=== PATIENT | female | born 1950 | race Two or more races ===

== ENCOUNTER → 2024-12-16 | Outpatient (CLI) | payer OTHER ==
[~2024-12-16] VITALS: Ht 170.2 cm; Wt 113.4 kg
[~2024-12-16] MED LIST: ATOR10TA52 PO; CARV12.544 PO; CLON0.1T PO; HYDR1TAB97; ISO60SRT PO; LOSA-535 PO; NIFE60TA61
[2024-12-16] MEDS: REGADENOSON 0.4 MG/5 ML SYRG IV ONE ×2 (09:16→10:25)
--- NOTE | 2024-12-16 18:48 | DVHSR ---
APPROVED REPORT Exam: Nuclear Stress Test BMI: 0 Stress Test Details Stress Test: Pharmacologic stress testing performed using 0.4 mg of regadenoson per 5 mL given IV ov er 10 seconds. HR Resting HR: 88 bpmMax Heart Rate (APMHR): 144.966288 bpm Max HR Achieved: 100 bpmTarget HR (85% APMHR): 122.265959 bpm % of APMHR: 69.44 Recovery HR: 91 bpm BP Resting BP: 153/72 mmHg Recovery BP: 132/70 mmHg ECG Resting ECG: Sinus Rhythm Clinical Reason for Termination: Completed protocol Nurse Comments Recieved pt. from [employer]. A/Ox4 on RA. Connected to traffic monitor specialist, VS stable. PIV flushes well. Re viewed POC. Pt. verbalized understanding of procedure including risks and side effects, agrees for st ress testing. Lexiscan stress test performed per protocol. [employer] tech administered Cardiolite. Pt. tolerated well . Pt. stable, no change on exam. VS returned to baseline. Transferred to [employer] via wheelchair w/ te ch. Stress ECG Conclusion lvef 62% normal perfusion scan normal lvef NM EXAM: Myocardial Perfusion REST/STRESS Imaging Protocol: Rest Tc-99m/Stress Tc-99m 1 day Resting Data Rest SPECT myocardial perfusion imaging was performed in supine position 45 minutes following the int ravenous injection of 10.2 mCi of Tc-99m Sestamibi. Time of rest injection: 09:10 Date: 12/16/2024 Time of rest imagin:55 Date: 12/16/2024 Administration Route: IV Administration Site: Left Arm Pharmacologic Stress Pharmacologic stress test was performed by injecting Regadenoson 0.4 mg IV push followed by the intra venous injection of 32.4 mCi of Tc-99m Sestamibi. Time of stress injection: 10:25 Date: 12/16/2024 Time of stress imagin:10 Date: 12/16/2024 Administration Route: IV Administration Site: Left Hand Gated Stress SPECT was performed 45 minutes after stress injection. The images were gated to evaluate regional wall motion and calculate left ventricular ejection fracti on. Stress only was performed in the Supine position. Nuclear Conclusion Nuclear Findings: negative for ischemia lvef 62% normal perfusion scan normal lvef
== END | disposition home or self-care (01) ==
LOC: XYW 08:10
PROVIDERS: ATTEND Internal Medicine
DX: I10 Essential (primary) hypertension (principal)
CPT/HCPCS: 78452; 93017; A9500; J2785